=== PATIENT | female | born 1985 | race Caucasian/White ===

== ENCOUNTER 2016-08-14 15:54 | Emergency (ER) | payer MEDICAID ==
[~2016-08-14] VITALS: Ht 160 cm; Wt 68.0 kg
[2016-08-14 16:41] LABS: BASOPHIL % 0.8 % (0-2); PLATELET COUNT 338 x10^3mcL (130-400); RED CELL DISTRIBUTION WIDTH 12.7 % (11.5-14.5)
[2016-08-14 16:45] LABS: CALCIUM 9.2 mg/dL (8.5-10.1); CARBON DIOXIDE 24.2 mmol/L (21-32); CHLORIDE SERUM 106 mmol/L (98-107); CREATININE SERUM 0.8 mg/dL (0.6-1.0); GFR1 > 60 mL/min; GLUCOSE SERUM 119 mg/dL (74-106); POTASSIUM SERUM 3.9 mmol/L (3.5-5.1); SODIUM SERUM 145 mmol/L (136-145)
[2016-08-14 16:49] LABS: ALBUMIN 4.1 g/dL (3.4-5.0); ALKALINE PHOSPHATASE 76 U/L (46-116); ALT/SGPT 49 U/L (14-59); AST/SGOT 44 U/L (15-37); BILIRUBIN TOTAL 0.19 mg/dL (0.20-1.00)
[2016-08-14 16:50] LABS: TOTAL PROTEIN, SERUM 8.4 g/dL (6.4-8.2)
[2016-08-14 17:19] LABS: AMPHETAMINE QUAL UR NONE DETECTED (NEG <=1000)
[2016-08-15] MEDS ORDERED: LEXAPRO5 M1 PO (00:03)
[2016-08-15] MEDS ORDERED: XANAX0.5 MG PO (00:04)
[2016-08-15] MEDS ORDERED: LAMICTAL25 M2 PO (00:04)
[2016-08-15 10:25] VITALS: BP 122/74
== END 2016-08-15 10:25 | disposition home or self-care (01) ==
LOC: ED 15:54
PROVIDERS: Emergency Medicine
DX: F10.129 Alcohol abuse with intoxication, unspecified (principal); F32.9 Major depressive disorder, single episode, unspecified; Z88.8 Allergy status to other drugs, medicaments and biological substances; Z91.02 Food additives allergy status; Z86.59 Personal history of other mental and behavioral disorders
CPT/HCPCS: 36415; G0480; Q0162

== ENCOUNTER 2017-01-13 11:39 | Emergency (ER) | payer MEDICAID ==
[~2017-01-13 11:39] MED LIST: LAMICTAL25 M2 PO; LEXAPRO5 M1 PO; XANAX0.5 MG PO
[2017-01-13 12:08] VITALS: BP 149/64
== END 2017-01-13 12:26 | disposition home or self-care (01) ==
LOC: ED 11:39
DX: F41.1 Generalized anxiety disorder (principal); Z88.8 Allergy status to other drugs, medicaments and biological substances

== ENCOUNTER 2017-10-17 13:12 | Emergency (ER) | payer OTHER ==
[~2017-10-17] VITALS: Ht 160 cm; Wt 62.1 kg
[2017-10-17 13:13] VITALS: BP 118/78; Ht 160 cm; Wt 62.1 kg
== END 2017-10-17 17:50 | disposition left against medical advice (07) ==
LOC: ED 13:12
DX: Z53.21 Procedure and treatment not carried out due to patient leaving prior to being seen by health care provider (principal)

== ENCOUNTER 2017-11-15 10:30 | Emergency (ER) | payer OTHER ==
[~2017-11-15] VITALS: Ht 160 cm; Wt 64.9 kg
[2017-11-15 10:40] VITALS: Ht 160 cm; Wt 64.9 kg
[2017-11-15 12:26] LABS: CALCIUM 9.4 mg/dL (8.5-10.1); CARBON DIOXIDE 29.4 mmol/L (21-32); CHLORIDE SERUM 97 mmol/L (98-107); CREATININE SERUM 0.7 mg/dL (0.6-1.0); GFR1 > 60 mL/min; GLUCOSE SERUM 74 mg/dL (74-106); POTASSIUM SERUM 4.2 mmol/L (3.5-5.1); SODIUM SERUM 135 mmol/L (136-145)
[2017-11-15 12:31] LABS: ALBUMIN 3.9 g/dL (3.4-5.0); ALKALINE PHOSPHATASE 88 U/L (46-116); ALT/SGPT 52 U/L (14-59); AST/SGOT 61 U/L (15-37); BASOPHIL % 0.4 % (0-2); BILIRUBIN TOTAL 0.81 mg/dL (0.20-1.00); LIPASE 99 IU/L (73-393); PLATELET COUNT 235 x10^3mcL (130-400); RED CELL DISTRIBUTION WIDTH 13.1 % (11.5-14.5)
[2017-11-15 12:32] LABS: TOTAL PROTEIN, SERUM 8.6 g/dL (6.4-8.2)
[2017-11-15 17:00] VITALS: BP 137/98
== END 2017-11-15 17:00 | disposition home or self-care (01) ==
LOC: ED 10:30
PROVIDERS: Emergency Medicine
DX: K52.9 Noninfective gastroenteritis and colitis, unspecified (principal); F31.9 Bipolar disorder, unspecified; Z98.82 Breast implant status; Z88.8 Allergy status to other drugs, medicaments and biological substances
CPT/HCPCS: J2270; J2405; J7030

== ENCOUNTER 2020-04-28 13:47 | Emergency (ER) | payer OTHER ==
[~2020-04-28] VITALS: Ht 160 cm; Wt 77.1 kg
[2020-04-28 14:02] VITALS: Ht 160 cm; Wt 77.1 kg
[2020-04-28 14:41] LABS: PLATELET COUNT 298 x10^3mcL (179-408); RED CELL DISTRIBUTION WIDTH 13.8 % (12.3-17.7)
[2020-04-28 14:59] LABS: BASOPHIL % 2.3 % (0.2-1.3)
[2020-04-28 15:01] LABS: CALCIUM 9.2 mg/dL (8.5-10.1); CARBON DIOXIDE 22.8 mmol/L (21-32); CHLORIDE SERUM 94 mmol/L (98-107); CREATININE SERUM 0.8 mg/dL (0.6-1.0); GFR1 > 60 mL/min; GLUCOSE SERUM 80 mg/dL (74-106); POTASSIUM SERUM 3.7 mmol/L (3.5-5.1); SODIUM SERUM 136 mmol/L (136-145)
[2020-04-28 15:06] LABS: ALBUMIN 3.8 g/dL (3.4-5.0); ALKALINE PHOSPHATASE 91 U/L (46-116); ALT/SGPT 117 U/L (14-59); AST/SGOT 148 U/L (15-37); BILIRUBIN TOTAL 0.7 mg/dL (0.20-1.00)
[2020-04-28 15:11] LABS: TOTAL PROTEIN, SERUM 8.6 g/dL (6.4-8.2)
[2020-04-28 15:14] LABS: T3 TOTAL 1.41 ng/mL
[2020-04-28 15:18] LABS: FREE T4 1.04 ng/dL (0.76-1.46); FREE THYROXINE INDEX 2.8 ug/dL (1.4-4.5); T4(THYROXINE) 9.7 ug/dL (4.7-13.3)
[2020-04-28 15:44] LABS: AMPHETAMINE QUAL UR NONE DETECTED (See below)
[2020-04-28] MEDS ORDERED: ATIVAN1 MG PO (17:17)
[2020-04-28 17:41] VITALS: BP 138/95
== END 2020-04-28 17:41 | disposition home or self-care (01) ==
LOC: ED 13:47
PROVIDERS: Emergency Medicine
DX: F32.9 Major depressive disorder, single episode, unspecified (principal); F41.9 Anxiety disorder, unspecified; F10.129 Alcohol abuse with intoxication, unspecified
CPT/HCPCS: 84439; G0480; J2060; U0003